=== PATIENT | male | born 1995 | race Caucasian/White ===

== ENCOUNTER 2018-11-30 18:05 | Emergency (ER) | payer OTHER ==
[~2018-11-30] VITALS: Ht 177.8 cm; Wt 97.1 kg
[2018-11-30 18:23] VITALS: Ht 177.8 cm; Wt 97.1 kg
[2018-12-01 01:07] VITALS: BP 107/68
== END 2018-12-01 01:07 | disposition home or self-care (01) ==
LOC: ED 18:05
DX: B34.9 Viral infection, unspecified (principal); J45.909 Unspecified asthma, uncomplicated; Z88.8 Allergy status to other drugs, medicaments and biological substances
CPT/HCPCS: 87804; J1885; J7030